=== PATIENT | male | born 1985 | race Two or more races ===

== ENCOUNTER 2022-01-24 20:42 | Emergency (ER) | payer OTHER ==
[~2022-01-24] VITALS: Ht 175.3 cm; Wt 84.5 kg
[2022-01-24 20:48] VITALS: BP 117/76
--- NOTE | 2022-01-24 21:28 | NUR ---
PT STATED HES NOT WAITING ANY LONGER AND LEFT. PT SEEN LEAVING THE ER BY STAFF. INFORMED
== END 2022-01-24 21:35 | disposition left against medical advice (07) ==
LOC: ER 20:43
DX: M79.602 Pain in left arm (principal); Z53.21 Procedure and treatment not carried out due to patient leaving prior to being seen by health care provider